=== PATIENT | male | born 1975 | race Two or more races ===

== ENCOUNTER 2016-10-24 12:39 | Emergency (ER) | payer SELFPAY ==
[~2016-10-24] VITALS: Ht 172.7 cm; Wt 90.7 kg
[2016-10-24 12:56] VITALS: BP 148/100
--- NOTE | 2016-10-24 13:35 | Emergency Room Report ---
History of Present Illness General Chief Complaint: Back Pain-No Injury Source: Patient Present Illness HPI 41 YO Male presents to the emergency department complaining of 9/10 in severity burning sensation to the posterior rib cage in a linear fashion. Patient states that he has been doing some mild physical activity as he is moving however he states that he has been taking it pretty easy as one month ago he did have fractures to the anterior rib cage. Patient states that he has had multiple broken bones in the past and this discomfort is out of character. he denies fevers, chills, rashes. Patient states he did have chickenpox as a child. Patient states that family member had a shingles outbreak 2 months ago. he denies history of immunocompromise. Patient denies bruising, erythema, new trauma or fall. She denies cough, SOB, or recent travel. pt. states pain is intermittent. and superficial on the skin. Denies CP, Palpitations, LOC, AMS , dizziness, Changes in Vision, Sensation, paresthesias, or a sudden severe headache. Allergies: Coded Allergies: No Known Allergies (Unverified , 10/24/16) Patient History Past Medical History: see triage record Past Surgical History: none Pertinent Family History: none Immunizations: UTD Reviewed Nursing Documentation: PMH: Agreed, PSxH: Agreed Nursing Documentation-PMH Past Medical History: No History, Except For Hx Asthma: Yes Review of Systems All Other Systems: negative except mentioned in HPI Physical Exam Vital Signs Date Time Temp Pulse Resp B/P Pulse Ox O2 Delivery O2 Flow Rate FiO2 10/24/16 12:56 98.4 68 18 148/100 98 Room Air Sp02 EP Interpretation: reviewed, normal General Appearance: no apparent distress, alert, GCS 15, non-toxic Head: normocephalic, atraumatic Eyes: bilateral eye normal inspection, bilateral eye PERRL ENT: hearing grossly normal, normal voice Neck: full range of motion Respiratory: lungs clear, normal breath sounds, speaking full sentences Cardiovascular #1: regular rate, rhythm Musculoskeletal: back normal, gait/station normal, normal range of motion, tender - right lateral posterior rib cage ttp, very mild, mostly superficial in nature, no deep bony ttp, no erythema, no obvious deformity, no flail chest. Neurologic: alert, oriented x3, responsive, motor strength/tone normal, sensory intact, speech normal Psychiatric: judgement/insight normal, memory normal, mood/affect normal Skin: normal color, no rash, warm/dry, well hydrated Medical Decision Making PA Attestation Dr. Treviño is my supervising Physician whom patient management has been discussed with. Diagnostic Impression: Primary Impression: Muscle strain Additional Impression: Possible Shingles prodrome- too early to dx ER Course 41 YO Male presents to the emergency department complaining of 9/10 in severity burning sensation to the posterior rib cage in a linear fashion. Patient states that he has been doing some mild physical activity as he is moving however he states that he has been taking it pretty easy as one month ago he did have fractures to the anterior rib cage. Patient states that he has had multiple broken bones in the past and this discomfort is out of character. he denies fevers, chills, rashes. Patient states he did have chickenpox as a child. Patient states that family member had a shingles outbreak 2 months ago. he denies history of immunocompromise. Patient denies bruising, erythema, new trauma or fall. She denies cough, SOB, or recent travel. pt. states pain is intermittent. and superficial on the skin. Denies CP, Palpitations, LOC, AMS , dizziness, Changes in Vision, Sensation, paresthesias, or a sudden severe headache. Ddx considered but are not limited to Muscular strain , or prodrome to shingles outbreak, cellulitis, shingles, varicella, dermatitis, urticaria, eczema, tinea Vital signs: are WNL, pt. is afebrile H&PE are most consistent with Muscle strain, however d/w pt. that also very likely is prodrome of shingles outbreak. ORDERS: none required at this time, the diagnosis is clinical ED INTERVENTIONS: None required at this time. -D/W pt. conservative treatment, and that in the event that a rash breaks out that he can be started on antivirals if required. in the mean time will treat as muscular strain. I do not suspect an emergent condition at this time. with current presentation pt. is stable for close outpatient follow up. D/w pt. to return to ED with worsening or new symptoms. DISCHARGE: At this time pt. is stable for d/c to home. Will provide printed patient care instructions, and any necessary prescriptions. Care plan and follow up instructions have been discussed with the patient prior to discharge. Last Vital Signs Date Time Temp Pulse Resp B/P Pulse Ox O2 Delivery O2 Flow Rate FiO2 10/24/16 12:56 98.4 68 18 148/100 98 Room Air Disposition: HOME, SELF-CARE Condition: Stable Scripts Cyclobenzaprine Hcl* (FLEXERIL*) 10 Mg Tablet 10 MG ORAL THREE TIMES A DAY for 7 Days, #21 TAB Prov: Nisha Lozano 10/24/16 Ibuprofen* (MOTRIN*) 600 Mg Tablet 600 MG ORAL THREE TIMES A DAY, #30 TAB 0 Refills Prov: Nisha Lozano 10/24/16 Referrals: NOT CHOSEN IPA/MD,REFERRING (PCP) Departure Forms: Return to Work Return to Work Date: Oct 27, 2016 Work Restrictions: None Return to Full Activity: Oct 27, 2016 Patient Instructions: Muscle Strain, [id number] Additional Instructions: Take medications as directed. Follow up with a Primary Care Provider in 3-5 days, even if your symptoms have resolved. --Please review list of primary care clinics, if you do not already have a primary care provider Return sooner to ED if new symptoms occur, or current symptoms become worse. Do not drink alcohol, drive, or operate heavy machinery while taking flexeril as this may cause drowsiness. - Please note that this Emergency Department Report was dictated using [employer] planning [employer] technology software, occasionally this can lead to erroneous entry secondary to interpretation by the dictation equipment. Nisha Lozano Oct 24, 2016 13:35
[2016-10-24] MEDS ORDERED: CYCLOBENZAPRINE10 MG ORAL (13:36)
[2016-10-24] MEDS ORDERED: IBUPROFEN600 MG ORAL (13:36)
[2016-10-24 13:50] VITALS: BP 126/86
== END 2016-10-24 13:50 | disposition home or self-care (01) ==
LOC: EMR 13:05
DX: T14.8 Other injury of unspecified body region (principal); J45.909 Unspecified asthma, uncomplicated; X58.XXXA Exposure to other specified factors, initial encounter; Y92.9 Unspecified place or not applicable
CPT/HCPCS: 99284